=== PATIENT | female | born 1965 | race Two or more races ===

== ENCOUNTER 2018-11-01 11:54 | Outpatient (CLI) | payer OTHER | END 2018-11-01 16:45 | disposition home or self-care (01) | LOC: RAD 11:54 | DX: M41.20 Other idiopathic scoliosis, site unspecified (principal); M62.830 Muscle spasm of back ==

== ENCOUNTER 2020-03-19 10:49 | Emergency (ER) | payer OTHER ==
[~2020-03-19] VITALS: Ht 152.4 cm; Wt 59.0 kg
== END 2020-03-19 11:59 | disposition home or self-care (01) ==
LOC: ER 10:49
DX: S71.111A Laceration without foreign body, right thigh, initial encounter (principal); W26.8XXA Contact with other sharp object(s), not elsewhere classified, initial encounter; Y93.89 Activity, other specified; Y92.89 Other specified places as the place of occurrence of the external cause; Y99.8 Other external cause status